=== PATIENT | male | born 1980 | race Caucasian/White ===

== ENCOUNTER 2022-09-09 23:50 | Emergency (ER) | payer MEDICAID, OTHER ==
[2022-09-09] MEDS ORDERED: Sodium Chloride 0.9% 1000 ML 1,000 ML IV STA (23:57)
[2022-09-10] MEDS ORDERED: TORAdol 30 mg Injection IV ONE (00:01)
--- NOTE | 2022-09-10 00:07 | ERPHSYRPT ---
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 He says it hurts when he takes a deep breath and it started yesterday morning. He says the pain is increased tonight. He has a history of chronic back pain and does have an implanted stimulator. He denies any fever chills or sweats. No report of any cough or hemoptysis. He does report that he is allergic to "fish" and that he is allergic to nonsteroidal anti- inflammatories. Timing/Duration: yesterday Activities at Onset: none Quality: sharpness, stabbing Location: other (Right anterolateral chest) Chest Pain Radiation: no radiation Severity of Pain-Max: severe Severity of Pain-Current: moderate Modifying Factors: Improves With: breathing, coughing, movement Prior Chest Pain/Cardiac Workup: no prior chest pain Nitro Today/Relief: no nitro taken today Aspirin Treatment Today: no aspirin today Allergies/Adverse Reactions: NSAIDS (Non-Steroidal Anti-Inflamma Allergy (Severe, Verified 09/10/22 00:15) Swelling of Face Fish Containing Products Allergy (Intermediate, Verified 09/10/22 00:15) Hives - Review of Systems Constitutional: No Fever, No Chills Eyes: No Symptoms Ears, Nose, & Throat: No Symptoms Respiratory: No Cough, No Dyspnea Cardiac: Chest Pain (Right anterolateral rib area pleuritic), No Edema, No Syncope Abdominal/Gastrointestinal: No Abdominal Pain, No Nausea, No Vomiting, No Diarrhea Genitourinary Symptoms: No Dysuria Musculoskeletal: No Back Pain, No Neck Pain Skin: No Rash Neurological: No Dizziness, No Focal Weakness, No Sensory Changes Psychological: No Symptoms Endocrine: No Symptoms All Other Systems: Reviewed and Negative - Nursing Vital Signs Nursing Vital Signs: Initial Vital Signs Temperature 98.3 F 09/09/22 23:53 Pulse Rate 71 09/09/22 23:53 Respiratory Rate 16 09/09/22 23:53 Blood Pressure 134/87 09/09/22 23:53 O2 Sat by Pulse Oximetry 100 09/09/22 23:53 Pain Scale Pain Intensity 6 - Physical Exam General Appearance: mild distress, alert Eye Exam: PERRL/EOMI, eyes nml inspection Ears, Nose, Throat Exam: normal ENT inspection, moist mucous membranes Neck Exam: normal inspection, non-tender, supple, full range of motion Respiratory Exam: normal breath sounds, lungs clear, No respiratory distress Cardiovascular Exam: regular rate/rhythm, normal heart sounds Gastrointestinal/Abdomen Exam: soft, No tenderness, No mass Back Exam: normal inspection, No CVA tenderness, No vertebral tenderness Extremity Exam: normal inspection, normal range of motion Neurologic Exam: alert, oriented x 3, cooperative, normal mood/affect, sensation nml, No motor deficits Skin Exam: normal color, warm, dry SpO2 Interpretation: normal O2 Delivery: Room Air - Course Nursing assessment & vital signs reviewed: Yes EKG Interpreted by Me: RATE (66), Sinus Rhythm, NORMAL AXIS, NORMAL INTERVALS, NORMAL QRS, NORMAL ST-T - CT Exams Chest CT Interpretation: Negative Ordered Tests: Active Orders 24 hr Category Date Time Status EKG-ER Only STAT Care 09/09/22 23:57 Active IV Insertion STAT Care 09/09/22 23:57 Active CHEST WITHOUT CONTRAST [CT] Stat Exams 09/10/22 00:58 Taken CBC W DIFF Stat Lab 09/09/22 23:57 Completed CMP Stat Lab 09/09/22 23:57 Completed D-DIMER QUANTITATIVE Stat Lab 09/09/22 23:57 Completed PROTIME WITH INR Stat Lab 09/09/22 23:57 Completed PTT Stat Lab 09/09/22 23:57 Completed TROPONIN Q4H Lab 09/09/22 23:57 Completed TROPONIN Q4H Lab 09/10/22 03:57 Ordered TROPONIN Q4H Lab 09/10/22 07:57 Ordered UA W/RFX UR CULTURE Stat Lab 09/10/22 01:00 Completed Urine Triage Profile Stat Lab 09/10/22 01:09 Completed Medication Summary Discontinued Medications Generic Name Dose Route Start Last Admin Trade Name Freq PRN Reason Stop Dose Admin Methylprednisolone Sodium 0 mg 09/10/22 01:52 09/10/22 02:32 Succinate 125 mg/ Sterile IV 09/10/22 01:53 125 mg Water 2 ml STAT ONE Administration Diphenhydramine HCl Confirm 09/10/22 01:00 Diphenhydramine Hcl 50 Mg/Ml Vial Administered 09/10/22 01:01 Dose 50 mg .ROUTE .STK-MED ONE Diphenhydramine HCl 50 mg 09/10/22 01:04 09/10/22 01:04 Diphenhydramine Hcl 50 Mg/Ml Vial IV 09/10/22 01:05 50 mg STAT ONE Administration Hydromorphone HCl 0.5 mg 09/10/22 00:57 09/10/22 01:04 Hydromorphone 1 Mg/1ml Inj 1 Mg/Ml Syringe IV 09/10/22 00:58 0.5 mg STAT ONE Administration Hydromorphone HCl Confirm 09/10/22 01:00 Hydromorphone 1 Mg/1ml Inj 1 Mg/Ml Syringe Administered 09/10/22 01:01 Dose 1 mg .ROUTE .STK-MED ONE Sodium Chloride 1,000 mls @ 999 mls/hr 09/09/22 23:57 09/10/22 00:41 Sodium Chloride 0.9% 1000 Ml IV 09/10/22 00:57 999 mls/hr .Q1H1M STA Administration Sodium Chloride Confirm 09/10/22 00:39 Sodium Chloride 0.9% 1000 Ml Administered 09/10/22 00:40 Dose 1,000 mls @ ud .ROUTE .STK-MED ONE Ketorolac Tromethamine 30 mg 09/10/22 00:01 09/10/22 02:33 Ketorolac Tromethamine 30 Mg/Ml Inj IV 09/10/22 00:02 Not Given STAT ONE Methylprednisolone Sodium Succinate Confirm 09/10/22 02:27 Methylprednis Sod Succ 125 Mg/2 Ml Vial Administered 09/10/22 02:28 Dose 125 mg .ROUTE .STK-MED ONE Sterile Water Confirm 09/10/22 02:27 Water For Injection,Sterile 10 Ml Vial Administered 09/10/22 02:28 Dose 10 ml IJ .STK-MED ONE Lab/Rad Data: Laboratory Result Diagrams 09/10/22 00:01 09/10/22 00:01 Laboratory Results 09/10/22 09/10/22 09/10/22 Range/Units 01:09 01:00 00:01 WBC (4.0-10.5) x10^3/uL RBC (4.1-5.6) x10^6/uL Hgb (12.5-18.0) g/dL Hct (42-50) % MCV (78-100) fL MCH (26-32) pg MCHC (32-36) g/dL RDW (11.5-14.0) % Plt Count (150-450) x10^3/uL MPV (7.5-11.0) fL Gran % (36.0-66.0) % Immature Gran % (Auto) (0.00-0.4) % Nucleat RBC Rel Count (0.00-0.1) % Eos # (Auto) (0-0.5) x10^3/uL Immature Gran # (Auto) (0.00-0.03) x10^3u/L Absolute Lymphs (auto) (1.0-4.6) x10^3/uL Absolute Monos (auto) (0.0-1.3) x10^3/uL Absolute Nucleated RBC (0.00-0.01) x10^3u/L Lymphocytes % (24.0-44.0) % Monocytes % (0.0-12.0) % Eosinophils % (0.00-5.0) % Basophils % (0.0-0.4) % Absolute Granulocytes (1.4-6.9) x10^3/uL Basophils # (0-0.4) x10^3/uL PT (9.4-12.5) SECONDS INR (0.8-3.0) APTT (25.1-36.5) SECONDS D-Dimer (0.0-0.50) mg/L Sodium (137-145) mmol/L Potassium (3.5-5.1) mmol/L Chloride (98-107) mmol/L Carbon Dioxide (22-30) mmol/L Anion Gap (5-15) MEQ/L BUN (9-20) mg/dL Creatinine (0.66-1.25) mg/dL Estimated GFR ML/MIN Glucose (74-106) mg/dL Calcium (8.4-10.2) mg/dL Total Bilirubin (0.2-1.3) mg/dL AST (17-59) U/L ALT (0-50) U/L Alkaline Phosphatase (38-126) U/L Troponin I (0.000-0.034) ng/mL NT-Pro-B Natriuret Pep 47.9 (<300) pg/mL Serum Total Protein (6.3-8.2) g/dL Albumin (3.5-5.0) g/dL Urine Color Yellow (Yellow) Urine Appearance Clear (Clear) Urine pH 6.5 (4.6-8.0) Ur Specific Cedar 1.025 (1.005-1.030) Urine Protein Negative (Negative) Urine Glucose (UA) Negative (Negative) mg/dL Urine Ketones Negative (Negative) Urine Blood Negative (Negative) Urine Nitrite Negative (Negative) Urine Bilirubin Negative (Negative) Urine Urobilinogen 0.2 (0.2) mg/dL Ur Leukocyte Esterase Negative (Negative) U Hyaline Cast (Auto) 0-2 (0-2) /LPF Urine Microscopic RBC NONE SEEN (0-5) /HPF Urine Microscopic WBC 0-2 (0-5) /HPF Ur Epithelial Cells None Seen (None Seen) /HPF Urine Bacteria None Seen (None Seen) /HPF Urine Mucus Moderate A (NEGATIVE) /HPF Urine Culture Reflexed NO (NO) Urine Opiates Level NEGATIVE (NEGATIVE) Ur Methadone NEGATIVE (NEGATIVE) Urine Barbiturates NEGATIVE (NEGATIVE) Ur Phencyclidine (PCP) NEGATIVE (NEGATIVE) Urine Amphetamine NEGATIVE (NEGATIVE) U Benzodiazepine Level NEGATIVE (NEGATIVE) Urine Cocaine NEGATIVE (NEGATIVE) Urine Marijuana (THC) NEGATIVE (NEGATIVE) 09/10/22 09/10/22 09/10/22 Range/Units 00:01 00:01 00:01 WBC 12.8 H (4.0-10.5) x10^3/uL RBC 4.29 (4.1-5.6) x10^6/uL Hgb 12.3 L (12.5-18.0) g/dL Hct 38.2 L (42-50) % MCV 89.0 (78-100) fL MCH 28.7 (26-32) pg MCHC 32.2 (32-36) g/dL RDW 13.2 (11.5-14.0) % Plt Count 228 (150-450) x10^3/uL MPV 9.7 (7.5-11.0) fL Gran % 76.8 H (36.0-66.0) % Immature Gran % (Auto) 0.2 (0.00-0.4) % Nucleat RBC Rel Count 0.0 (0.00-0.1) % Eos # (Auto) 0.05 (0-0.5) x10^3/uL Immature Gran # (Auto) 0.03 (0.00-0.03) x10^3u/L Absolute Lymphs (auto) 2.15 (1.0-4.6) x10^3/uL Absolute Monos (auto) 0.70 (0.0-1.3) x10^3/uL Absolute Nucleated RBC 0.00 (0.00-0.01) x10^3u/L Lymphocytes % 16.8 L (24.0-44.0) % Monocytes % 5.5 (0.0-12.0) % Eosinophils % 0.4 (0.00-5.0) % Basophils % 0.3 (0.0-0.4) % Absolute Granulocytes 9.86 H (1.4-6.9) x10^3/uL Basophils # 0.04 (0-0.4) x10^3/uL PT 10.0 (9.4-12.5) SECONDS INR 0.91 (0.8-3.0) APTT 23.9 L (25.1-36.5) SECONDS D-Dimer < 0.19 (0.0-0.50) mg/L Sodium 141 (137-145) mmol/L Potassium 3.7 (3.5-5.1) mmol/L Chloride 105 (98-107) mmol/L Carbon Dioxide 29 (22-30) mmol/L Anion Gap 10.3 (5-15) MEQ/L BUN 14 (9-20) mg/dL Creatinine 0.64 L (0.66-1.25) mg/dL Estimated GFR > 60.0 ML/MIN Glucose 119 H (74-106) mg/dL Calcium 8.6 (8.4-10.2) mg/dL Total Bilirubin 0.60 (0.2-1.3) mg/dL AST 22 (17-59) U/L ALT 35 (0-50) U/L Alkaline Phosphatase 73 (38-126) U/L Troponin I < 0.012 (0.000-0.034) ng/mL NT-Pro-B Natriuret Pep (<300) pg/mL Serum Total Protein 6.8 (6.3-8.2) g/dL Albumin 4.1 (3.5-5.0) g/dL Urine Color (Yellow) Urine Appearance (Clear) Urine pH (4.6-8.0) Ur Specific Cedar (1.005-1.030) Urine Protein (Negative) Urine Glucose (UA) (Negative) mg/dL Urine Ketones (Negative) Urine Blood (Negative) Urine Nitrite (Negative) Urine Bilirubin (Negative) Urine Urobilinogen (0.2) mg/dL Ur Leukocyte Esterase (Negative) U Hyaline Cast (Auto) (0-2) /LPF Urine Microscopic RBC (0-5) /HPF Urine Microscopic WBC (0-5) /HPF Ur Epithelial Cells (None Seen) /HPF Urine Bacteria (None Seen) /HPF Urine Mucus (NEGATIVE) /HPF Urine Culture Reflexed (NO) Urine Opiates Level (NEGATIVE) Ur Methadone (NEGATIVE) Urine Barbiturates (NEGATIVE) Ur Phencyclidine (PCP) (NEGATIVE) Urine Amphetamine (NEGATIVE) U Benzodiazepine Level (NEGATIVE) Urine Cocaine (NEGATIVE) Urine Marijuana (THC) (NEGATIVE) - Progress Progress: unchanged Air Movement: good Blood Culture(s) Obtained: No Antibiotics given: No Medical Desision Making - Diagnostic Testing Diagnostic test were ordered, analyzed, and reviewed by me: Yes Radiological Interpretation: Reviewed by me, Teleradiologist Report - Risk of complications The pt has a mod risk of morbidity or mortality based on: Need for prescription drug management - Departure Departure Disposition: Custodial/Shelter Clinical Impression: GERD (gastroesophageal reflux disease) Condition: Stable Critical Care Time: No Referrals: DOCTOR,NO FAMILY [Primary Care Provider] - Follow up/PCP as directed Instructions: Acid Reflux and GERD in Adults (DC) Prescriptions: PANTOPRAZOLE 40 mg Tablet [Protonix 40MG Tablet] 40 mg PO DAILY 30 Days #30 tab
[2022-09-10 00:17] LABS: Absolute Neutrophil Ct (ANC) 9.86 x10^3/uL (1.4-6.9); BASOPHIL % 0.3 % (0.0-0.4); Basophil (Absolute #) 0.04 x10^3/uL (0-0.4); Eosinophil % 0.4 % (0.00-5.0); Eosinophil (Absolute #) 0.05 x10^3/uL (0-0.5); Hematocrit 38.2 % (42-50); Hemoglobin 12.3 g/dL (12.5-18.0); IMMATURE GRAN # 0.03 x10^3u/L (0.00-0.03); IMMATURE GRAN % 0.2 % (0.00-0.4); Lymphocyte (Absolute #) 2.15 x10^3/uL (1.0-4.6); Lymphocytes % 16.8 % (24.0-44.0); Mean Corpuscular Hemoglobin 28.7 pg (26-32); Mean Corpuscular Hgb Concent. 32.2 g/dL (32-36); Mean Platelet Volume 9.7 fL (7.5-11.0); Monocytes % 5.5 % (0.0-12.0); Neutrophil % 76.8 % (36.0-66.0); Platelet Count 228 x10^3/uL (150-450); Red Blood Count 4.29 x10^6/uL (4.1-5.6); Red Cell Distribution Width 13.2 % (11.5-14.0); White Blood Count 12.8 x10^3/uL (4.0-10.5)
[2022-09-10 00:33] LABS: D-DIMER QUANTITATIVE < 0.19 mg/L (0.0-0.50); INR 0.91 (0.8-3.0); PTT 23.9 SECONDS (25.1-36.5)
[2022-09-10] MEDS ORDERED: Sodium Chloride 0.9% 1000 ML 1,000 ML ONE (00:39)
[2022-09-10 00:43] LABS: ALBUMIN 4.1 g/dL (3.5-5.0); ALKALINE PHOSPHATASE 73 U/L (38-126); ANION GAP 10.3 MEQ/L (5-15); BLOOD UREA NITROGEN 14 mg/dL (9-20); CHLORIDE 105 mmol/L (98-107); Calcium 8.6 mg/dL (8.4-10.2); Carbon Dioxide 29 mmol/L (22-30); Creatinine 1 0.64 mg/dL (0.66-1.25); EST GLOMERULAR FILTRATION RATE > 60.0 ML/MIN; Glucose 119 mg/dL (74-106); Potassium 3.7 mmol/L (3.5-5.1); SGOT/AST 22 U/L (17-59); SGPT/ALT 35 U/L (0-50); SODIUM 141 mmol/L (137-145); TROPONIN < 0.012 ng/mL (0.000-0.034); Total Protein 6.8 g/dL (6.3-8.2)
[2022-09-10] MEDS ORDERED: Hydromorphone 1 mg/ml Injection IV ONE (00:57)
[2022-09-10] MEDS ORDERED: BENADRYL 50 MG/ML IM ONE (00:57)
[2022-09-10] MEDS ORDERED: BENADRYL 50 MG/ML ONE (01:00)
[2022-09-10] MEDS ORDERED: Hydromorphone 1 mg/ml Injection ONE (01:00)
[2022-09-10] MEDS ORDERED: BENADRYL 50 MG/ML IV ONE (01:04)
[2022-09-10 01:34] LABS: Amphetamine,Urine NEGATIVE (NEGATIVE); Barbiturate,Urine NEGATIVE (NEGATIVE); Benzodiazepine,Urine NEGATIVE (NEGATIVE); Cocaine,Urine NEGATIVE (NEGATIVE); Methadone,Urine NEGATIVE (NEGATIVE); Opiate,Urine NEGATIVE (NEGATIVE); PCP,Urine NEGATIVE (NEGATIVE); THC,Urine NEGATIVE (NEGATIVE)
[2022-09-10 01:48] LABS: Appearance Clear (Clear); Bilirubin Negative (Negative); Blood Negative (Negative); Glucose, Urine Negative (Negative); Ketones Negative (Negative); Leukocyte Esterase Negative (Negative); Nitrite Negative (Negative); Ph 6.5 (4.6-8.0); Protein,Urine Dip Negative (Negative); Specific Gravity 1.025 (1.005-1.030); Urobilinogen 0.2 mg/dL (0.2)
[2022-09-10 01:49] LABS: ADD URINE CULTURE? NO (NO); Bacteria None Seen /HPF (None Seen); Epithelial Cells None Seen /HPF (None Seen); Hyaline Casts 0-2 /LPF (0-2); Mucus Moderate /HPF (NEGATIVE); RBC NONE SEEN /HPF (0-5); WBC 0-2 /HPF (0-5)
[2022-09-10] MEDS ORDERED: solu-MEDROL 125 MG, Sterile H2O 10 ml 2 ML IV ONE ×2 (01:52)
[2022-09-10] MEDS ORDERED: solu-MEDROL ONE (02:27)
[2022-09-10] MEDS ORDERED: Sterile H2O 10 ml IJ ONE (02:27)
[2022-09-10] MEDS ORDERED: Protonix 40MG Tablet PO ONE (03:18)
[2022-09-10] MEDS ORDERED: Protonix 40MG Tablet ONE (03:19)
[2022-09-10 03:23] VITALS: BP 118/85; PULSE 62; O2SAT 99
--- NOTE | 2022-09-10 08:40 | XRAY ---
Indication: Right pleuritic chest pain. No known injury. Multiple contiguous axial images obtained through the chest without contrast. Comparison: None Lungs demonstrates minimal bilateral dependent atelectasis. No suspicious pulmonary mass/nodule, infiltrate, effusion, or pneumothorax. Heart is not enlarged. Aorta is normal in course and caliber. No pathologic mediastinal lymphadenopathy. Distal esophagus demonstrate mild circumferential wall thickening, possible reflux esophagitis in the right clinical setting. Bony thorax intact with epidural leads terminating T7. Limited upper abdomen including adrenal glands are unremarkable. Impression: 1. Mild distal esophageal circumferential wall thickening. Rule out reflux esophagitis. 2. Remaining CT chest without contrast exam is negative. Comment: Preliminary interpretation made by C. No critical discrepancy.
== END 2022-09-10 03:22 | disposition home or self-care (01) ==
LOC: EEVIPCON 23:50 → ED 23:50
DX: K21.9 Gastro-esophageal reflux disease without esophagitis (principal); R07.81 Pleurodynia
CPT/HCPCS: 36000; 36415; 71250; 80053; 80307; 81001; 83880; 84484; 85025; 85379; 85610; 85730; 93005; 96360; 96374; 96375; 99284; J1170; J1200; J2930; A9270-GY

== ENCOUNTER 2022-12-04 16:51 | Emergency (ER) | payer MEDICAID, OTHER ==
[2022-12-04 17:07] VITALS: PULSE 66; O2SAT 96
[2022-12-04] MEDS ORDERED: Zofran 4 MG/2 ML VIAL IV ONE (17:25)
[2022-12-04] MEDS ORDERED: Sodium Chloride 0.9% 1000 ML 1,000 ML IV STA (17:25)
--- NOTE | 2022-12-04 17:25 | ERPHSYRPT ---
- History of Present Illness Time Seen by Provider: 12/04/22 17:15 Historian: patient, other (Skilled Nursing) Exam Limitations: no limitations Patient Subjective Stated Complaint: Abdominal pain- RUQ pain Triage Nursing Assessment: Patient brought back to ED per w/c handcuffed and accompanied per alf staff. Patient states he started having pain to RUQ with N/V. Patient denies diarrhea. Abdomen soft and round with BS X 4. Rebound tenderness noted to RUQ. Physician History: This is a 42-year-old male who presents to the emergency department from local alf where he is an inmate. Skilled Nursing staff members are with this patient. Patient complains of right upper quadrant abdominal pain with associated nausea and vomiting. Per alf staff the patient is not allowed to have any narcotics. Patient has a history of gastroesophageal reflux disease. Patient is a daily smoker of cigarettes. Patient denies chest pain. Patient denies shortness of breath. Patient states that he has had a few of these similar episodes in the last few months. He denies jaundice, he denies acholic stools. He denies dark urine Timing/Duration: today Quality: aching Abdominal Pain Onset Location: RUQ Severity of Pain-Max: moderate Severity of Pain-Current: mild (To moderate) Modifying Factors: Improves With: vomiting Associated Symptoms: nausea, vomiting, No chest pain Previous symptoms: no prior history, no recent treatment Allergies/Adverse Reactions: NSAIDS (Non-Steroidal Anti-Inflamma Allergy (Severe, Verified 12/04/22 17:00) Swelling of Face Fish Containing Products Allergy (Intermediate, Verified 12/04/22 17:00) Hives meloxicam [From Mobic] Allergy (Verified 12/04/22 17:04) Home Medications: Omeprazole 1 tab PO DAILY 12/04/22 [History] Paroxetine HCl 20 mg [Paxil 20 MG] 2 tab PO DAILY 12/04/22 [History] Hx Tetanus, Diphtheria Vaccination/Date Given: Yes Hx Influenza Vaccination/Date Given: No Hx Pneumococcal Vaccination/Date Given: No Travel Risk - International Travel Have you traveled outside of the country in past 3 weeks: No - Coronavirus Screening Are you exhibiting any of the following symptoms?: No Close contact with a COVID-19 positive Pt in past 14-21 Days: No - Vaccine Status Have you recieved a Covid-19 vaccination: Yes Finishing Area Supervisor: [employer] - Vaccination Dates Date of 2cond Vaccination (if applicable): 2020 - Review of Systems Constitutional: No Symptoms Eyes: No Symptoms Ears, Nose, & Throat: No Symptoms Respiratory: No Symptoms Cardiac: No Symptoms Abdominal/Gastrointestinal: Abdominal Pain, Nausea (Upper quadrant), Vomiting, Appetite Changes, No Diarrhea, No Constipation Genitourinary Symptoms: No Symptoms Musculoskeletal: No Symptoms Skin: No Symptoms Neurological: No Symptoms Psychological: No Symptoms Endocrine: No Symptoms Hematologic/Lymphatic: No Symptoms Immunological/Allergic: No Symptoms All Other Systems: Reviewed and Negative - Past Medical History Pertinent Past Medical History: Yes Neurological History: No Pertinent History ENT History: No Pertinent History Respiratory History: No Pertinent History Endocrine Medical History: No Pertinent History Musculoskeletal History: No Pertinent History GI Medical History: GERD History: No Pertinent History Psycho-Social History: Depression Male Reproductive Disorders: No Pertinent History Other Medical History: chronic back pain, spinal cord fusion, spinal cord stimulator - Past Surgical History Past Surgical History: Yes Musculoskeletal: Orthopedic Surgery Other Surgical History: mult back surgeries, implanted spinal cord stimulator. rt knee surgery - Social History Smoking Status: Current every day smoker How long have you smoked: 10 yrs Drug Use: none Patient Lives Alone: No (at alf) - Nursing Vital Signs Nursing Vital Signs: Initial Vital Signs Temperature 98.2 F 12/04/22 17:04 Pulse Rate 66 12/04/22 17:04 Respiratory Rate 18 12/04/22 17:04 Blood Pressure 163/115 12/04/22 17:04 O2 Sat by Pulse Oximetry 96 12/04/22 17:04 Pain Scale Pain Intensity 7 - Physical Exam General Appearance: no apparent distress, alert, anxiety Eye Exam: PERRL/EOMI, eyes nml inspection Ears, Nose, Throat Exam: normal ENT inspection, moist mucous membranes Neck Exam: normal inspection, non-tender, supple, full range of motion Respiratory Exam: normal breath sounds, lungs clear, airway intact, No chest tenderness, No respiratory distress Cardiovascular Exam: regular rate/rhythm, normal heart sounds, normal peripheral pulses Gastrointestinal/Abdomen Exam: soft, normal bowel sounds, tenderness (Right upper quadrant to palpation), guarding (Right upper quadrant to palpation) Rectal Exam: not done Back Exam: normal inspection, normal range of motion, No CVA tenderness, No vertebral tenderness Extremity Exam: normal inspection, normal range of motion, pelvis stable Neurologic Exam: alert, oriented x 3, cooperative, pipe straightener II-XII nml as tested, n ormal mood/affect, nml cerebellar function, nml station & gait, sensation nml Skin Exam: normal color, warm, dry Lymphatic Exam: No adenopathy SpO2 Interpretation: normal SpO2: 96 O2 Delivery: Room Air - Course Nursing assessment & vital signs reviewed: Yes Ordered Tests: Active Orders 24 hr Category Date Time Status IV Insertion STAT Care 12/04/22 17:25 Active ABDOMEN AND PELVIS W/0 CONTRAS [CT] Stat Exams 12/04/22 17:25 Completed AMYLASE Stat Lab 12/04/22 17:20 Completed CBC W DIFF Stat Lab 12/04/22 17:20 Completed CMP Stat Lab 12/04/22 17:20 Completed LIPASE Stat Lab 12/04/22 17:20 Completed UA W/RFX UR CULTURE Stat Lab 12/04/22 17:38 Completed Urine Triage Profile Stat Lab 12/04/22 17:38 Completed Medication Summary Discontinued Medications Generic Name Dose Route Start Last Admin Trade Name Candice PRN Reason Stop Dose Admin Acetaminophen 650 mg 12/04/22 17:41 12/04/22 18:12 Acetaminophen 325 Mg Tablet PO 12/04/22 17:42 650 mg STAT ONE Administration Acetaminophen Confirm 12/04/22 18:08 Acetaminophen 325 Mg Tablet Administered 12/04/22 18:09 Dose 650 mg .ROUTE .STK-MED ONE Sodium Chloride 1,000 mls @ 999 mls/hr 12/04/22 17:25 12/04/22 18:42 Sodium Chloride 0.9% 1000 Ml IV 12/04/22 18:25 Infused .Q1H1M STA Infusion Sodium Chloride Confirm 12/04/22 17:29 Sodium Chloride 0.9% 1000 Ml Administered 12/04/22 17:30 Dose 1,000 mls @ ud .ROUTE .STK-MED ONE Ondansetron HCl 4 mg 12/04/22 17:25 12/04/22 17:31 Ondansetron Hcl 4 Mg/2 Ml Vial IV 12/04/22 17:26 4 mg STAT ONE Administration Ondansetron HCl Confirm 12/04/22 17:29 Ondansetron Hcl 4 Mg/2 Ml Vial Administered 12/04/22 17:30 Dose 4 mg .ROUTE .STK-MED ONE Lab/Rad Data: Laboratory Result Diagrams 12/04/22 17:20 12/04/22 17:20 Laboratory Results 12/04/22 12/04/22 12/04/22 Range/Units 17:38 17:38 17:20 WBC (4.0-10.5) x10^3/uL RBC (4.1-5.6) x10^6/uL Hgb (12.5-18.0) g/dL Hct (42-50) % MCV (78-100) fL MCH (26-32) pg MCHC (32-36) g/dL RDW (11.5-14.0) % Plt Count (150-450) x10^3/uL MPV (7.5-11.0) fL Gran % (36.0-66.0) % Immature Gran % (Auto) (0.00-0.4) % Nucleat RBC Rel Count (0.00-0.1) % Eos # (Auto) (0-0.5) x10^3/uL Immature Gran # (Auto) (0.00-0.03) x10^3u/L Absolute Lymphs (auto) (1.0-4.6) x10^3/uL Absolute Monos (auto) (0.0-1.3) x10^3/uL Absolute Nucleated RBC (0.00-0.01) x10^3u/L Lymphocytes % (24.0-44.0) % Monocytes % (0.0-12.0) % Eosinophils % (0.00-5.0) % Basophils % (0.0-0.4) % Absolute Granulocytes (1.4-6.9) x10^3/uL Basophils # (0-0.4) x10^3/uL Sodium 140 (137-145) mmol/L Potassium 4.0 (3.5-5.1) mmol/L Chloride 102 (98-107) mmol/L Carbon Dioxide 24 (22-30) mmol/L Anion Gap 18.2 H (5-15) MEQ/L BUN 12 (9-20) mg/dL Creatinine 0.63 L (0.66-1.25) mg/dL Estimated GFR > 60.0 ML/MIN Glucose 130 H (74-106) mg/dL Calcium 9.7 (8.4-10.2) mg/dL Total Bilirubin 1.50 H (0.2-1.3) mg/dL AST 27 (17-59) U/L ALT 24 (0-50) U/L Alkaline Phosphatase 68 (38-126) U/L Serum Total Protein 8.9 H (6.3-8.2) g/dL Albumin 5.0 (3.5-5.0) g/dL Amylase 60 (30-110) U/L Lipase 45 (23-300) U/L Urine Color Yellow (Yellow) Urine Appearance Clear (Clear) Urine pH 5.5 (4.6-8.0) Ur Specific [place] >=1.030 A (1.005-1.030) Urine Protein Trace A (Negative) Urine Glucose (UA) Negative (Negative) mg/dL Urine Ketones Trace A (Negative) Urine Blood NHT (Negative) Urine Nitrite Negative (Negative) Urine Bilirubin Negative (Negative) Urine Urobilinogen 0.2 (0.2) mg/dL Ur Leukocyte Esterase Negative (Negative) U Hyaline Cast (Auto) 3-5 A (0-2) /LPF Urine Microscopic RBC 3-5 (0-5) /HPF Urine Microscopic WBC 0-2 (0-5) /HPF Ur Epithelial Cells None Seen (None Seen) /HPF Urine Bacteria None Seen (None Seen) /HPF Urine Culture Reflexed NO (NO) Urine Opiates Level NEGATIVE (NEGATIVE) Ur Methadone NEGATIVE (NEGATIVE) Urine Barbiturates NEGATIVE (NEGATIVE) Ur Phencyclidine (PCP) NEGATIVE (NEGATIVE) Urine Amphetamine NEGATIVE (NEGATIVE) U Benzodiazepine Level NEGATIVE (NEGATIVE) Urine Cocaine NEGATIVE (NEGATIVE) Urine Marijuana (THC) NEGATIVE (NEGATIVE) 12/04/22 Range/Units 17:20 WBC 14.4 H (4.0-10.5) x10^3/uL RBC 4.83 (4.1-5.6) x10^6/uL Hgb 14.3 (12.5-18.0) g/dL Hct 42.1 (42-50) % MCV 87.2 (78-100) fL MCH 29.6 (26-32) pg MCHC 34.0 (32-36) g/dL RDW 12.1 (11.5-14.0) % Plt Count 219 (150-450) x10^3/uL MPV 10.2 (7.5-11.0) fL Gran % 89.7 H (36.0-66.0) % Immature Gran % (Auto) 0.3 (0.00-0.4) % Nucleat RBC Rel Count 0.0 (0.00-0.1) % Eos # (Auto) 0 (0-0.5) x10^3/uL Immature Gran # (Auto) 0.04 H (0.00-0.03) x10^3u/L Absolute Lymphs (auto) 0.96 L (1.0-4.6) x10^3/uL Absolute Monos (auto) 0.46 (0.0-1.3) x10^3/uL Absolute Nucleated RBC 0.00 (0.00-0.01) x10^3u/L Lymphocytes % 6.7 L (24.0-44.0) % Monocytes % 3.2 (0.0-12.0) % Eosinophils % 0.0 (0.00-5.0) % Basophils % 0.1 (0.0-0.4) % Absolute Granulocytes 12.88 H (1.4-6.9) x10^3/uL Basophils # 0.02 (0-0.4) x10^3/uL Sodium (137-145) mmol/L Potassium (3.5-5.1) mmol/L Chloride (98-107) mmol/L Carbon Dioxide (22-30) mmol/L Anion Gap (5-15) MEQ/L BUN (9-20) mg/dL Creatinine (0.66-1.25) mg/dL Estimated GFR ML/MIN Glucose (74-106) mg/dL Calcium (8.4-10.2) mg/dL Total Bilirubin (0.2-1.3) mg/dL AST (17-59) U/L ALT (0-50) U/L Alkaline Phosphatase (38-126) U/L Serum Total Protein (6.3-8.2) g/dL Albumin (3.5-5.0) g/dL Amylase (30-110) U/L Lipase (23-300) U/L Urine Color (Yellow) Urine Appearance (Clear) Urine pH (4.6-8.0) Ur Specific [place] (1.005-1.030) Urine Protein (Negative) Urine Glucose (UA) (Negative) mg/dL Urine Ketones (Negative) Urine Blood (Negative) Urine Nitrite (Negative) Urine Bilirubin (Negative) Urine Urobilinogen (0.2) mg/dL Ur Leukocyte Esterase (Negative) U Hyaline Cast (Auto) (0-2) /LPF Urine Microscopic RBC (0-5) /HPF Urine Microscopic WBC (0-5) /HPF Ur Epithelial Cells (None Seen) /HPF Urine Bacteria (None Seen) /HPF Urine Culture Reflexed (NO) Urine Opiates Level (NEGATIVE) Ur Methadone (NEGATIVE) Urine Barbiturates (NEGATIVE) Ur Phencyclidine (PCP) (NEGATIVE) Urine Amphetamine (NEGATIVE) U Benzodiazepine Level (NEGATIVE) Urine Cocaine (NEGATIVE) Urine Marijuana (THC) (NEGATIVE) - Progress Progress: pain not gone completely, re-examined Progress Note: 12/04/22 18:49 This patient's CAT scan of his abdomen and pelvis shows a distended gallbladder. There there are chronic findings and no acute intra-abdominal or intrapelvic pelvic findings. I reviewed the impression by the radiologist. This patient's medical issue is 1 of moderate complexity. The level complexity and the work-up performed is based on review of the patient's past medical history, review of the patient's medication list, review of the patient's drug allergy list, history of present illness and physical findings on examination. The work-up includes a CBC, CMP, urinalysis, CT scan of the abdomen pelvis without contrast. I reviewed the results of this work-up. There is distended gallbladder and this should be worked up as an outpatient with a gallbladder ultrasound. Patient's pancreas enzymes are normal and he has a slightly elevate d total bilirubin but the remainder of the liver enzymes are within normal limits. Patient is to avoid fatty greasy spicy foods and he can use Tylenol for pain control. We will send a prescription for Zofran to his pharmacy remotely Counseled pt/family regarding: lab results, diagnosis, need for follow-up, rad results Medical Desision Making - Diagnostic Testing Diagnostic test were ordered, analyzed, and reviewed by me: Yes Radiological Interpretation: Reviewed by me, Teleradiologist Report - Risk of complications The pt has a mod risk of morbidity or mortality based on: Need for prescription drug management - Departure Departure Disposition: Skilled Nursing/[facility] Clinical Impression: RUQ abdominal pain, Vomiting, Mild dehydration Condition: Stable Critical Care Time: No Referrals: DOCTOR,NO FAMILY [Primary Care Provider] - Follow up/PCP as directed Additional Instructions: Avoid fatty greasy spicy foods. Drink plenty of clear liquids. Follow-up with your primary care provider as an outpatient to obtain a gallbladder ultrasound. Prescriptions: Ondansetron ODT 4 MG [Zofran Odt 4 mg] 4 mg PO Q6H PRN PRN #10 tablet PRN Reason: Vomiting
[2022-12-04] MEDS ORDERED: Zofran 4 MG/2 ML VIAL ONE (17:29)
[2022-12-04] MEDS ORDERED: Sodium Chloride 0.9% 1000 ML 1,000 ML ONE (17:29)
[2022-12-04] MEDS ORDERED: TYLENOL 325 MG PO ONE (17:41)
[2022-12-04 17:42] LABS: Absolute Neutrophil Ct (ANC) 12.88 x10^3/uL (1.4-6.9); BASOPHIL % 0.1 % (0.0-0.4); Basophil (Absolute #) 0.02 x10^3/uL (0-0.4); Eosinophil (Absolute #) 0 x10^3/uL (0-0.5); Hematocrit 42.1 % (42-50); Hemoglobin 14.3 g/dL (12.5-18.0); IMMATURE GRAN # 0.04 x10^3u/L (0.00-0.03); IMMATURE GRAN % 0.3 % (0.00-0.4); Lymphocyte (Absolute #) 0.96 x10^3/uL (1.0-4.6); Lymphocytes % 6.7 % (24.0-44.0); Mean Cell Volume 87.2 fL (78-100); Mean Corpuscular Hemoglobin 29.6 pg (26-32); Mean Platelet Volume 10.2 fL (7.5-11.0); Monocyte (Absolute #) 0.46 x10^3/uL (0.0-1.3); Monocytes % 3.2 % (0.0-12.0); Neutrophil % 89.7 % (36.0-66.0); Platelet Count 219 x10^3/uL (150-450); Red Blood Count 4.83 x10^6/uL (4.1-5.6); Red Cell Distribution Width 12.1 % (11.5-14.0); White Blood Count 14.4 x10^3/uL (4.0-10.5)
[2022-12-04 17:52] LABS: Appearance Clear (Clear); Bacteria None Seen /HPF (None Seen); Bilirubin Negative (Negative); Blood NHT (Negative); Epithelial Cells None Seen /HPF (None Seen); Glucose, Urine Negative (Negative); Ketones Trace (Negative); Leukocyte Esterase Negative (Negative); Nitrite Negative (Negative); Ph 5.5 (4.6-8.0); Protein,Urine Dip Trace (Negative); Specific Gravity >=1.030 (1.005-1.030); Urobilinogen 0.2 mg/dL (0.2); WBC 0-2 /HPF (0-5)
[2022-12-04 17:56] LABS: ALKALINE PHOSPHATASE 68 U/L (38-126); AMYLASE 60 U/L (30-110); ANION GAP 18.2 MEQ/L (5-15); BLOOD UREA NITROGEN 12 mg/dL (9-20); CHLORIDE 102 mmol/L (98-107); Calcium 9.7 mg/dL (8.4-10.2); Carbon Dioxide 24 mmol/L (22-30); Creatinine 1 0.63 mg/dL (0.66-1.25); EST GLOMERULAR FILTRATION RATE > 60.0 ML/MIN; Glucose 130 mg/dL (74-106); LIPASE 45 U/L (23-300); SGOT/AST 27 U/L (17-59); SGPT/ALT 24 U/L (0-50); SODIUM 140 mmol/L (137-145); Total Protein 8.9 g/dL (6.3-8.2)
[2022-12-04 17:57] LABS: ADD URINE CULTURE? NO (NO)
[2022-12-04 18:05] LABS: Amphetamine,Urine NEGATIVE (NEGATIVE); Barbiturate,Urine NEGATIVE (NEGATIVE); Benzodiazepine,Urine NEGATIVE (NEGATIVE); Cocaine,Urine NEGATIVE (NEGATIVE); Methadone,Urine NEGATIVE (NEGATIVE); Opiate,Urine NEGATIVE (NEGATIVE); PCP,Urine NEGATIVE (NEGATIVE); THC,Urine NEGATIVE (NEGATIVE)
[2022-12-04] MEDS ORDERED: TYLENOL 325 MG ONE (18:08)
--- NOTE | 2022-12-04 18:35 | XRAY ---
Indication: Right upper quadrant pain. Vomiting. Multiple contiguous axial images obtained through the abdomen and pelvis without contrast. Comparison: None Beam artifact from bilateral L4-S1 fusion hardware and left lower back epidural stimulator device/leads. Lung bases demonstrates mild dependent atelectasis. Heart not enlarged. Small hiatal hernia. Noncontrasted stomach and bowel loops appear nonobstructed with normal appendix. Moderately distended gallbladder without gallstones or biliary distention. No free fluid/air. Remaining liver, gallbladder, pancreas, spleen, adrenal glands, kidneys, ureters, and bladder are unremarkable for noncontrast exam. Minimal aortoiliac calcifications without AAA. Osseous structures intact with bilateral L4-S1 laminectomy. Impression: 1. Beam artifact from spinal fusion hardware and epidural stimulator device/leads. 2. Distended gallbladder better evaluated with sonogram if clinically warranted. 3. Chronic findings including hiatal hernia, arteriosclerotic disease, and lower lumbar postsurgical changes.
[2022-12-04 18:55] VITALS: BP 160/97
== END 2022-12-04 19:03 | disposition home or self-care (01) ==
LOC: ED 16:51 → EEVIPCON 16:51 → ED 19:03
DX: R10.11 Right upper quadrant pain (principal); R11.2 Nausea with vomiting, unspecified; E86.0 Dehydration; Z79.899 Other long term (current) drug therapy; Z72.0 Tobacco use
CPT/HCPCS: 36000; 36415; 74176; 80053; 80307; 81001; 82150; 83690; 85025; 96360; 96374; 99284; J2405; A9270-GY